=== PATIENT | male | born 1965 | race African-American/Black ===

== ENCOUNTER 2019-02-05 05:11 | Emergency (ER) | payer MEDICAID ==
[~2019-02-05] VITALS: Ht 165.1 cm; Wt 75.0 kg
[2019-02-05] MEDS ORDERED: ACETAMINOPHEN 325MG TABLET PO STA (06:27)
[2019-02-05] MEDS ORDERED: SODIUM CHLORIDE 0.9% 1,000 ML IV ONE (06:27)
[2019-02-05] MEDS ORDERED: LEVETIRACETAM 1000MG/100ML 100 ML IV ONE (06:30)
[2019-02-05 06:54] LABS: BASOPHILS % 0.5 % (0.0-2.0); EOSINOPHILS % 1.1 % (0.0-5.0); HEMATOCRIT. 46.2 % (42.0-52.0); LYMPHOCYTES % 11.7 % (20.0-50.0); MEAN CORPUSCULAR HEMOGLOBIN 32.2 pg (28.0-32.0); MEAN CORPUSCULAR VOLUME 93.3 fL (80.0-94.0); MEAN PLATELET VOLUME 9.3 fl (7.4-10.4); MONOCYTES % 5.7 % (2.0-8.0); PLATELET 126 x1000/uL (130-400); RED BLOOD CELL COUNT 4.96 mill/uL (4.7-6.1); RED CELL DISTRIBUTION WIDTH 13.4 % (11.6-14.6)
[2019-02-05 07:00] LABS: PARTIAL THROMBOPLASTIN TIME 27.1 sec (23.4-31.0); PROTHROMBIN TIME 10.5 sec (9.6-11.0)
[2019-02-05 07:02] LABS: CHLORIDE 103 mEq/L (98-107)
[2019-02-05 07:09] LABS: ETHANOL BLOOD < 10 mg/dL
[2019-02-05 07:55] LABS: CLARITY URINE CLEAR (CLEAR); COLOR URINE YELLOW (YELLOW); KETONES URINE TRACE (NEGATIVE); LEUKOCYTE ESTERASE URINE TRACE (NEGATIVE); NITRITE URINE NEGATIVE (NEGATIVE); OCCULT BLOOD URINE 1+ (NEGATIVE); PH URINE 6.5 (4.5-8.0); PROTEIN URINE TRACE (NEGATIVE); SPECIFIC GRAVITY URINE 1.023 (1.005-1.030)
[2019-02-05 08:36] LABS: *AMPHETAMINES SCREEN URINE NEGATIVE (NEGATIVE)
[2019-02-05 08:37] LABS: *BARBITURATES SCREEN URINE NEGATIVE (NEGATIVE); *BENZODIAZEPINES SCREEN URINE NEGATIVE (NEGATIVE); *COCAINE SCREEN URINE NEGATIVE (NEGATIVE); CANNABINOID URINE SCREEN PRESUMTIVE POSITIVE (NEGATIVE); METHADONE URINE SCREEN NEGATIVE (NEGATIVE); OPIATES URINE SCREEN NEGATIVE (NEGATIVE); PHENCYCLIDINE URINE SCREEN NEGATIVE (NEGATIVE)
[2019-02-05 08:48] VITALS: BP 128/64
== END 2019-02-05 08:40 | disposition home or self-care (01) ==
LOC: ER 05:11
DX: R51 Headache (principal); R56.9 Unspecified convulsions; J45.909 Unspecified asthma, uncomplicated; E11.9 Type 2 diabetes mellitus without complications; F12.10 Cannabis abuse, uncomplicated
CPT/HCPCS: 36415; 70450; 71045; 80053; 80305; 80320; 81003; 85025; 85610; 85730; 96365; 99284; J1953; J7030; G0480

== ENCOUNTER 2019-07-09 12:09 | Emergency (ER) | payer MEDICAID ==
[~2019-07-09] VITALS: Ht 180.3 cm; Wt 82.0 kg
[2019-07-09 13:14] LABS: BASOPHILS % 0.3 % (0.0-2.0); EOSINOPHILS % 2.6 % (0.0-5.0); HEMATOCRIT. 39.5 % (42.0-52.0); HEMOGLOBIN. 13.3 g/dL (14.0-18.0); LYMPHOCYTES % 19.9 % (20.0-50.0); MEAN CORPUSCULAR HEMOGLOBIN 31.7 pg (28.0-32.0); MEAN CORPUSCULAR VOLUME 93.9 fL (80.0-94.0); MEAN PLATELET VOLUME 8.9 fl (7.4-10.4); MONOCYTES % 7.1 % (2.0-8.0); NEUTROPHILS % 70.1 % (40.0-76.0); PLATELET 189 x1000/uL (130-400); RED BLOOD CELL COUNT 4.21 mill/uL (4.7-6.1); RED CELL DISTRIBUTION WIDTH 13.5 % (11.6-14.6)
[2019-07-09 13:21] LABS: CHLORIDE 104 mEq/L (98-107)
[2019-07-09 13:33] LABS: ETHANOL BLOOD < 10 mg/dL
[2019-07-09 16:13] LABS: CLARITY URINE CLEAR (CLEAR); COLOR URINE YELLOW (YELLOW); KETONES URINE NEGATIVE (NEGATIVE); LEUKOCYTE ESTERASE URINE 2+ (NEGATIVE); NITRITE URINE NEGATIVE (NEGATIVE); OCCULT BLOOD URINE TRACE (NEGATIVE); PROTEIN URINE TRACE (NEGATIVE); SPECIFIC GRAVITY URINE 1.015 (1.005-1.030)
[2019-07-09 16:29] LABS: *BARBITURATES SCREEN URINE NEGATIVE (NEGATIVE); *BENZODIAZEPINES SCREEN URINE NEGATIVE (NEGATIVE); *COCAINE SCREEN URINE NEGATIVE (NEGATIVE); CANNABINOID URINE SCREEN PRESUMTIVE POSITIVE (NEGATIVE); OPIATES URINE SCREEN PRESUMTIVE POSITIVE (NEGATIVE)
[2019-07-09 16:31] LABS: PHENCYCLIDINE URINE SCREEN NEGATIVE (NEGATIVE)
[2019-07-09 16:32] LABS: METHADONE URINE SCREEN NEGATIVE (NEGATIVE)
[2019-07-09 16:33] LABS: *AMPHETAMINES SCREEN URINE NEGATIVE (NEGATIVE)
[2019-07-09 17:15] VITALS: BP 134/78
== END 2019-07-09 17:18 | disposition home or self-care (01) ==
LOC: ER 12:09
DX: R56.9 Unspecified convulsions (principal); N30.00 Acute cystitis without hematuria; J45.909 Unspecified asthma, uncomplicated; E11.9 Type 2 diabetes mellitus without complications; Z87.440 Personal history of urinary (tract) infections; F12.10 Cannabis abuse, uncomplicated
CPT/HCPCS: 36415; 80305; 80320; 81003; 93005; 99284; G0480

== ENCOUNTER 2019-11-09 16:01 | Inpatient (IN) | payer MEDICAID ==
[~2019-11-09] VITALS: Ht 167.6 cm; Wt 64.0 kg
[2019-11-09 19:17] LABS: BASOPHILS % 0.5 % (0.0-2.0); EOSINOPHILS % 2.7 % (0.0-5.0); LYMPHOCYTES % 28.5 % (20.0-50.0); MEAN CORPUSCULAR VOLUME 93.8 fL (80.0-94.0); MONOCYTES % 5.8 % (2.0-8.0); NEUTROPHILS % 62.5 % (40.0-76.0); PLATELET 173 x1000/uL (130-400); RED BLOOD CELL COUNT 4.38 mill/uL (4.7-6.1); RED CELL DISTRIBUTION WIDTH 13.7 % (11.6-14.6)
[2019-11-09 19:23] LABS: CHLORIDE 107 mEq/L (98-107)
[2019-11-09 19:25] LABS: PROTHROMBIN TIME 10.1 sec (9.6-11.0)
[2019-11-09] MEDS ORDERED: PIPERACILLIN/TAZ 3.375G PREMIX 50 ML IV ONE (23:00)
[2019-11-09] MEDS ORDERED: VANCOMYCIN 1 G PREMIX 200 ML IV ONE (23:00)
[2019-11-10] MEDS ORDERED: HYDROCODONE/ACETAMINOPHEN 5/325MG TABLET PO ONE (00:45)
[2019-11-10 08:30] VITALS: BP 122/57
[2019-11-10 09:00] VITALS: BP 114/49
[2019-11-10] MEDS ORDERED: IPRATROPIUM/ALBUTEROL 0.5-3(2.5)MG/3ML NEB HHN PRN (09:45)
[2019-11-10] MEDS ORDERED: CLONIDINE 0.1MG TABLET PO PRN (09:45)
[2019-11-10] MEDS ORDERED: DIPHENHYDRAMINE 50MG/ML VIAL IV PRN (09:45)
[2019-11-10] MEDS ORDERED: ONDANSETRON HCL 4MG/2ML INJ IV PRN ×2 (09:45→16:00)
[2019-11-10] MEDS ORDERED: ACETAMINOPHEN 325MG TABLET PO PRN (09:45)
[2019-11-10] MEDS ORDERED: DEXTROSE 50% WATER 50ML SYRINGE IV PRN (10:00)
[2019-11-10] MEDS: MORPHINE SULFATE 2 MG/ML CPJ (NOT FOR IM USE) IV PRN ×2 (10:18→19:40)
[2019-11-10] MEDS ORDERED: CLOP75TA4 PO (11:21)
[2019-11-10] MEDS: PIPERACILLIN/TAZOBACTAM 3.375 G in DEXT 5% WATER 100 ML IV SCH ×2 (11:50→19:33)
[2019-11-10 12:00] VITALS: BP 135/66
[2019-11-10] MEDS ORDERED: VANCOMYCIN 1 G PREMIX 200 ML IV SCH (12:00)
[2019-11-10] MEDS: BLOOD SUGAR DIAGNOSTIC STRIP TEST SCH ×3 (12:01→21:24)
[2019-11-10] MEDS ORDERED: LIDOCAINE HCL 1% 20ML VIAL (Pyxis) INJ ONE (12:02)
[2019-11-10] MEDS ORDERED: BUPIVACAINE HCL/EPINEPHRINE/PF 0.5%/0.0005 10ML ONE (12:02)
[2019-11-10] MEDS ORDERED: BUPIVACAINE HCL/PF 0.5% (5MG/ML) 10ML ONE (12:03)
[2019-11-10] MEDS: INSULIN LISPRO 100 UNITS/ML SUBCUT SCH ×3 (12:04→21:29)
[2019-11-10] MEDS ORDERED: CLOP75TA4 MT (12:30)
[2019-11-10] MEDS ORDERED: KEPP500 MT (12:30)
[2019-11-10] MEDS ORDERED: LORAZEPAM 2MG/ML CPJ IV PRN (12:30)
[2019-11-10] MEDS ORDERED: METF-414 PO (12:30)
[2019-11-10] MEDS ORDERED: GABA-290 MT (12:30)
[2019-11-10] MEDS ORDERED: INSU100I28 SQ (12:30)
[2019-11-10] MEDS ORDERED: ASPI-1158 MT (12:30)
[2019-11-10] MEDS ORDERED: BACITRACIN 50,000 UNITS/VIAL ONE (13:45)
[2019-11-10 13:46] LABS: C REACTIVE PROTEIN QUANT 1.2 mg/L (0.0-3.0)
[2019-11-10 13:47] LABS: PHOSPHORUS 2.8 mg/dL (2.5-4.9)
[2019-11-10] MEDS ORDERED: PROPOFOL 200MG/20ML VIAL IV ONE (13:56)
[2019-11-10] MEDS ORDERED: FENTANYL CITRATE/PF 50MCG/ML 2ML VIAL ONE (13:56)
[2019-11-10] MEDS ORDERED: MIDAZOLAM HCL 2 MG/2 ML VIAL ONE (13:56)
[2019-11-10] MEDS ORDERED: DEXAMETHASONE 4MG/ML 1ML VIAL ONE (14:03)
[2019-11-10] MEDS ORDERED: ONDANSETRON HCL 4MG/2ML INJ ONE (14:03)
[2019-11-10] MEDS ORDERED: EPHEDRINE SULFATE 50MG/ML VIAL ONE (14:48)
[2019-11-10] MEDS ORDERED: SODIUM CHLORIDE 0.9% 10ML VIAL ONE (14:48)
[2019-11-10] MEDS ORDERED: HYDROMORPHONE HCL/PF 2MG/ML CPJ ONE (15:42)
[2019-11-10] MEDS ORDERED: HYDROMORPHONE HCL/PF 2MG/ML CPJ IV PRN (15:45)
[2019-11-10 16:30] VITALS: BP 135/68
[2019-11-10 16:34] LABS: *AMPHETAMINES SCREEN URINE NEGATIVE (NEGATIVE); *BARBITURATES SCREEN URINE NEGATIVE (NEGATIVE); *BENZODIAZEPINES SCREEN URINE NEGATIVE (NEGATIVE); *COCAINE SCREEN URINE NEGATIVE (NEGATIVE); METHADONE URINE SCREEN NEGATIVE (NEGATIVE); OPIATES URINE SCREEN PRESUMTIVE POSITIVE (NEGATIVE)
[2019-11-10 16:35] LABS: CANNABINOID URINE SCREEN PRESUMTIVE POSITIVE (NEGATIVE); PHENCYCLIDINE URINE SCREEN NEGATIVE (NEGATIVE)
[2019-11-10 20:00] VITALS: BP 121/55
[2019-11-11] VITALS: BP 118/57
[2019-11-11] MEDS: VANCOMYCIN 1 G PREMIX 200 ML IV SCH ×3 (01:38→16:45)
[2019-11-11] MEDS: PIPERACILLIN/TAZOBACTAM 3.375 G in DEXT 5% WATER 100 ML IV SCH ×3 (03:00→21:14)
[2019-11-11 04:00] VITALS: BP 115/53
[2019-11-11] MEDS: BLOOD SUGAR DIAGNOSTIC STRIP TEST SCH ×4 (06:46→21:00)
[2019-11-11 07:30] LABS: CHLORIDE 107 mEq/L (98-107)
[2019-11-11 07:43] LABS: LDL CHOLESTEROL 103 mg/dL (5-100)
[2019-11-11 07:44] LABS: HDL CHOLESTEROL 26 mg/dL (40-59)
[2019-11-11] MEDS: INSULIN LISPRO 100 UNITS/ML SUBCUT SCH ×4 (07:50→21:00)
[2019-11-11] MEDS: MORPHINE SULFATE 2 MG/ML CPJ (NOT FOR IM USE) IV PRN ×4 (07:59→21:15)
[2019-11-11 08:00] VITALS: BP 118/53
[2019-11-11 08:04] LABS: BASOPHILS % 0.3 % (0.0-2.0); EOSINOPHILS % 2.4 % (0.0-5.0); HEMATOCRIT. 36.7 % (42.0-52.0); LYMPHOCYTES % 17.7 % (20.0-50.0); MEAN CORPUSCULAR VOLUME 93.2 fL (80.0-94.0); MEAN PLATELET VOLUME 10.1 fl (7.4-10.4); MONOCYTES % 6.4 % (2.0-8.0); NEUTROPHILS % 73.2 % (40.0-76.0); PLATELET 150 x1000/uL (130-400); RED BLOOD CELL COUNT 3.94 mill/uL (4.7-6.1); RED CELL DISTRIBUTION WIDTH 13.4 % (11.6-14.6)
[2019-11-11 12:00] VITALS: BP 116/51
[2019-11-11] MEDS ORDERED: IOHEXOL-350 100 ML BOTTLE ONE (15:27)
[2019-11-11 16:00] VITALS: BP 140/60
[2019-11-11 20:00] VITALS: BP 108/50
[2019-11-12] VITALS: BP 113/52
[2019-11-12 04:00] VITALS: BP 118/61
[2019-11-12] MEDS: MORPHINE SULFATE 2 MG/ML CPJ (NOT FOR IM USE) IV PRN (05:22)
[2019-11-12] MEDS: VANCOMYCIN 1 G PREMIX 200 ML IV SCH ×2 (05:25→08:31)
[2019-11-12] MEDS: PIPERACILLIN/TAZOBACTAM 3.375 G in DEXT 5% WATER 100 ML IV SCH (06:24)
[2019-11-12] MEDS: BLOOD SUGAR DIAGNOSTIC STRIP TEST SCH (06:34)
[2019-11-12 06:41] LABS: CHLORIDE 104 mEq/L (98-107)
[2019-11-12] MEDS: INSULIN LISPRO 100 UNITS/ML SUBCUT SCH (08:32)
[2019-11-12 09:40] VITALS: BP 121/68
[2019-11-12] MEDS ORDERED: HYDR-4001 MT (10:01)
== END 2019-11-12 10:38 | disposition home or self-care (01) | DRG 305 ==
LOC: ER 16:01 → ENRESERV 11-10 07:22 → ER 11-10 08:37 → 6EST 11-10 08:48
PROVIDERS: ADMIT Internal Medicine; ATTEND Internal Medicine
PROC: 0Y6N0ZF Detachment at Left Foot, Partial 5th Ray, Open Approach (ICD-10-PCS; principal; 2019-11-10)
DX: E11.69 Type 2 diabetes mellitus with other specified complication (principal); E11.65 Type 2 diabetes mellitus with hyperglycemia; I70.262 Atherosclerosis of native arteries of extremities with gangrene, left leg; L08.9 Local infection of the skin and subcutaneous tissue, unspecified; E11.42 Type 2 diabetes mellitus with diabetic polyneuropathy; J45.909 Unspecified asthma, uncomplicated; E11.621 Type 2 diabetes mellitus with foot ulcer; L97.524 Non-pressure chronic ulcer of other part of left foot with necrosis of bone; M86.8X7 Other osteomyelitis, ankle and foot; F12.90 Cannabis use, unspecified, uncomplicated; Z91.013 Allergy to seafood; Z86.14 Personal history of Methicillin resistant Staphylococcus aureus infection
CPT/HCPCS: 36415; 71045; 73630; 73660; 73721; 75635; 80048; 80053; 80061; 80202; 80305; 82962; 83036; 83735; 84100; 84443; 85025; 85651; 86140; 87070; 87075; 87077; 87186; 88304; 88305; 88311; 93005; 93923; 93970; 99285; J0171; J1100; J1170; J1815; J2060; J2250; J2270; J2405; J2543; J2704; J3010; J3370; J3490; J7060; Q9967

== ENCOUNTER 2024-02-23 19:14 | Inpatient (IN) | payer OTHER ==
[~2024-02-23] VITALS: Ht 167.6 cm; Wt 58.5 kg
[~2024-02-23 19:14] MED LIST: ASPI-1406 MT; CLOP-31 MT; CLOP-31 PO; GABA-290 MT; HYDR-4001 MT; INSU100I28 SQ; KEPP500 MT; METF-414 PO; TAMS-11 MT
[2024-02-23] MEDS: LEVETIRACETAM 1000MG PREMIX 100 ML IV ONE (19:45)
[2024-02-23] MEDS: HALOPERIDOL LACTATE 5MG/ML VIAL IM ONE (20:31)
[2024-02-23] MEDS: LORAZEPAM 2MG/ML INJ IM ONE (20:31)
[2024-02-23 22:16] LABS: CLARITY URINE TURBID (CLEAR); COLOR URINE YELLOW (YELLOW); GLUCOSE URINE 3+ (NEGATIVE); KETONES URINE NEGATIVE (NEGATIVE); LEUKOCYTE ESTERASE URINE 2+ (NEGATIVE); NITRITE URINE NEGATIVE (NEGATIVE); OCCULT BLOOD URINE 2+ (NEGATIVE); PROTEIN URINE 1+ (NEGATIVE); UROBILINOGEN URINE 0.2 E.U./dL (0.2-1.0)
[2024-02-23 22:30] LABS: *AMPHETAMINES SCREEN URINE NEGATIVE (NEGATIVE); *BARBITURATES SCREEN URINE NEGATIVE (NEGATIVE); *BENZODIAZEPINES SCREEN URINE NEGATIVE (NEGATIVE); *COCAINE SCREEN URINE NEGATIVE (NEGATIVE); METHADONE URINE SCREEN NEGATIVE (NEGATIVE); OPIATES URINE SCREEN PRESUMPTIVE POSITIVE (NEGATIVE); PHENCYCLIDINE URINE SCREEN NEGATIVE (NEGATIVE)
[2024-02-23 22:31] LABS: CANNABINOID URINE SCREEN PRESUMPTIVE POSITIVE (NEGATIVE); ECSTASY MDMA SCREEN URINE NEGATIVE (NEGATIVE)
[2024-02-23 22:41] LABS: BACTERIA URINE 1+; SQUAMOUS EPITHELIAL CELL URINE FEW /lpf (RARE/1+)
[2024-02-23 22:42] LABS: WBC URINE TNTC /hpf (0-2)
[2024-02-23 23:22] LABS: BASOPHILS % 0.3 % (0.0-2.0); HEMATOCRIT. 41.7 % (42.0-52.0); HEMOGLOBIN. 13.8 g/dL (14.0-18.0); MEAN CORPUSCULAR HEMOGLOBIN 32.3 pg (28.0-32.0); MEAN CORPUSCULAR HGB CONC 33.1 g/dL (31.0-37.0); MEAN CORPUSCULAR VOLUME 97.8 fL (80.0-94.0); MEAN PLATELET VOLUME 8.5 fl (7.4-10.4); MONOCYTES % 4.9 % (2.0-8.0); NEUTROPHILS % 83.8 % (40.0-76.0); PLATELET 188 x1000/uL (130-400); RED BLOOD CELL COUNT 4.26 mill/uL (4.7-6.1); RED CELL DISTRIBUTION WIDTH 14.2 % (11.6-14.6); WHITE BLOOD COUNT 9.6 x1000/uL (4.5-11.0)
[2024-02-23 23:26] LABS: CHLORIDE 107 mEq/L (98-107); POTASSIUM 4.4 mEq/L (3.5-5.1); SODIUM 136 mEq/L (136-145)
[2024-02-23 23:27] LABS: CALCIUM 9.2 mg/dL (8.7-10.4); CARBON DIOXIDE 21 mEq/L (21-32)
[2024-02-23 23:32] LABS: CREATININE 1.1 mg/dL (0.6-1.3); GLUCOSE 163 mg/dL (70-105); UREA NITROGEN BLOOD 9 mg/dL (9-23)
[2024-02-23 23:40] LABS: ETHANOL BLOOD < 10 mg/dL (<10)
[2024-02-23 23:45] LABS: AMMONIA < 17 uMol/L (<32)
[2024-02-24] MEDS: HALOPERIDOL LACTATE 5MG/ML VIAL IM ONE (00:06)
[2024-02-24] MEDS ORDERED: CLONIDINE 0.1MG TABLET PO PRN (02:15)
[2024-02-24] MEDS ORDERED: DEXTROSE 50% WATER 50ML SYRINGE IV PRN (02:15)
[2024-02-24] MEDS ORDERED: MAGNESIUM/ALUMINUM HYDROXIDE/SIMETHICONE 30ML UDC PO PRN (02:15)
[2024-02-24] MEDS ORDERED: ACETAMINOPHEN 325MG TABLET PO PRN ×2 (02:15)
[2024-02-24] MEDS ORDERED: LEVETIRACETAM 500 MG in SODIUM CHLORIDE 0.9% 100 ML IV SCH (02:15)
[2024-02-24] MEDS ORDERED: IPRATROPIUM/ALBUTEROL 0.5-3(2.5)MG/3ML NEB HHN PRN (02:15)
[2024-02-24] MEDS ORDERED: DOCUSATE SODIUM 100MG CAPSULE PO PRN (02:15)
[2024-02-24] MEDS ORDERED: ONDANSETRON HCL 4MG/2ML INJ IV PRN (02:15)
[2024-02-24] MEDS ORDERED: HYDROCODONE/ACETAMINOPHEN 5/325MG TABLET PO PRN (02:15)
[2024-02-24] MEDS ORDERED: GUAIFENESIN 200MG/10ML SUGAR FREE UDC PO PRN (02:15)
[2024-02-24] MEDS: LEVOFLOXACIN 500MG PREMIX 100 ML IV SCH (04:27)
[2024-02-24] MEDS ORDERED: LORAZEPAM 2MG/ML INJ IV PRN (04:30)
[2024-02-24] MEDS ORDERED: FINA5TAB11 PO (04:30)
[2024-02-24] MEDS ORDERED: TERA5CAP4 PO (04:30)
[2024-02-24] MEDS ORDERED: TAMS-11 PO (04:30)
[2024-02-24] MEDS ORDERED: LEVE10006 PO (04:30)
[2024-02-24] MEDS ORDERED: EMPA10TA PO (04:30)
[2024-02-24] MEDS: LEVETIRACETAM 500MG PREMIX 100 ML IV SCH (06:00)
[2024-02-24] MEDS: BLOOD SUGAR DIAGNOSTIC STRIP TEST SCH (07:09)
[2024-02-24] MEDS: INSULIN LISPRO 100 UNITS/ML SUBCUT SCH (07:15)
[2024-02-24 09:30] VITALS: BP 142/64; PULSE 77; RESP 21; TEMP 98
[2024-02-24 10:07] VITALS: BP 142/64; PULSE 76; RESP 22; TEMP 98
[2024-02-24 12:00] VITALS: BP 130/100; PULSE 82; RESP 12; TEMP 98.5
[2024-02-24] MEDS: MULTIVITAMINS,THER W-MINERALS TABLET PO SCH (13:15)
[2024-02-24] MEDS: ENOXAPARIN 40MG/0.4ML SYR SUBCUT SCH (13:15)
[2024-02-24 16:00] VITALS: BP 154/63; PULSE 82; RESP 14; TEMP 98.3
[2024-02-24 20:00] VITALS: BP 146/64; PULSE 87; RESP 22; TEMP 96.9
[2024-02-24] MEDS: FAMOTIDINE 20MG TABLET PO SCH (21:02)
[2024-02-25] VITALS: BP 146/64; PULSE 68; RESP 19; TEMP 97
[2024-02-25 04:00] VITALS: BP 135/58; PULSE 81; RESP 17; TEMP 97.9
[2024-02-25 06:28] LABS: CHLORIDE 104 mEq/L (98-107); POTASSIUM 3.6 mEq/L (3.5-5.1); SODIUM 136 mEq/L (136-145)
[2024-02-25 06:29] LABS: CALCIUM 9.1 mg/dL (8.7-10.4); CARBON DIOXIDE 26 mEq/L (21-32)
[2024-02-25 06:34] LABS: GLUCOSE 103 mg/dL (70-105); TRIGLYCERIDE 134 mg/dL (0-150); UREA NITROGEN BLOOD 15 mg/dL (9-23)
[2024-02-25 06:35] LABS: LDL CHOLESTEROL 138 mg/dL (5-100)
[2024-02-25 06:36] LABS: BASOPHILS % 0.8 % (0.0-2.0); EOSINOPHILS % 0.9 % (0.0-5.0); HEMATOCRIT. 38.5 % (42.0-52.0); HEMOGLOBIN. 13.3 g/dL (14.0-18.0); LYMPHOCYTES % 32.1 % (20.0-50.0); MEAN CORPUSCULAR HEMOGLOBIN 32.4 pg (28.0-32.0); MEAN CORPUSCULAR HGB CONC 34.5 g/dL (31.0-37.0); MEAN CORPUSCULAR VOLUME 93.8 fL (80.0-94.0); MONOCYTES % 10.2 % (2.0-8.0); RED BLOOD CELL COUNT 4.11 mill/uL (4.7-6.1); RED CELL DISTRIBUTION WIDTH 13.5 % (11.6-14.6); WHITE BLOOD COUNT 6.1 x1000/uL (4.5-11.0)
[2024-02-25 06:36] LABS: CHOLESTEROL 180 mg/dL (<200); HDL CHOLESTEROL 35 mg/dL (>55); THYROID STIMULATING HORMONE 1.89 uIU/mL (0.55-4.78)
[2024-02-25 06:46] LABS: DIFFERENTIAL COMMENT 1
[2024-02-25 06:50] LABS: HEPATITIS B SURFACE ANTIGEN NEGATIVE (Negative)
[2024-02-25 07:11] LABS: HEPATITIS C AB NON REACTIVE (Neg) (Negative)
[2024-02-25 08:00] VITALS: BP 146/50; PULSE 84; RESP 18; TEMP 97.9
[2024-02-25 12:00] VITALS: BP 126/79; PULSE 71; RESP 14; TEMP 98.1
[2024-02-25 13:57] VITALS: BP 126/79; PULSE 71; TEMP 98.1; O2SAT 100
[2024-02-25] MEDS ORDERED: NALOXONE HCL 0.4MG/ML VIAL IV PRN (14:15)
[2024-02-25 14:27] LABS: PLATELET 165 x1000/uL (130-400)
[2024-02-26] MEDS ORDERED: LEVOFLOXACIN 750MG PREMIX 150 ML IV SCH (04:00)
== END 2024-02-25 16:41 | disposition home or self-care (01) | DRG 53 ==
LOC: ER 19:14 → 5WST 22:43 → EDBEDREQ 23:05 → 3WST 02-24 09:37
PROVIDERS: ADMIT Internal Medicine; ATTEND Internal Medicine
DX: G40.901 Epilepsy, unspecified, not intractable, with status epilepticus (principal); D63.8 Anemia in other chronic diseases classified elsewhere; E11.65 Type 2 diabetes mellitus with hyperglycemia; I10 Essential (primary) hypertension; F12.90 Cannabis use, unspecified, uncomplicated; E78.5 Hyperlipidemia, unspecified; N39.0 Urinary tract infection, site not specified; Z91.199 Patient's noncompliance with other medical treatment and regimen due to unspecified reason; Z86.73 Personal history of transient ischemic attack (TIA), and cerebral infarction without residual deficits; Z79.899 Other long term (current) drug therapy; Z79.84 Long term (current) use of oral hypoglycemic drugs
CPT/HCPCS: 36415; 80048; 80061; 80305; 80320; 81003; 82140; 82542; 82962; 83036; 83605; 84145; 84439; 84443; 85025; 86705; 87340; 93306; 99291; J1630; J1650; J1815; J1953; J1956; J2060; G0480